=== PATIENT | male | born 1955 | race American Indian/Alaskan Native ===

== ENCOUNTER 2023-01-02 20:18 | Emergency (ER) | payer OTHER ==
[~2023-01-02] VITALS: Ht 167.6 cm; Wt 72.6 kg
[2023-01-02 20:18] VITALS: TEMP 98.7
[2023-01-02 23:05] LABS: PLATELET COUNT 195 K/uL (142-355)
[2023-01-02 23:15] LABS: POTASSIUM 5.1 mmol/L (3.6-5.2)
[2023-01-02 23:33] VITALS: BP 137/76
[2023-01-03] MEDS ORDERED: CALCIUM 600 WIT1 TAB PO (08:42)
[2023-01-03] MEDS ORDERED: KP FOLIC ACID1 MG PO (08:42)
[2023-01-03] MEDS ORDERED: QUET25TA2 PO (08:43)
[2023-01-03] MEDS ORDERED: VITAMIN B-121000 MC2 PO (08:43)
[2023-01-03] MEDS ORDERED: ASCO500T18 PO (08:43)
[2023-01-03] MEDS ORDERED: VITAMIN D50000 UNIT PO (08:45)
[2023-01-03] MEDS ORDERED: ZINC220 M1 PO (08:45)
== END 2023-01-02 23:33 ==
LOC: ED 20:18
PROVIDERS: Family Medicine
DX: F03.911 Unspecified dementia, unspecified severity, with agitation (principal); Y04.0XXA Assault by unarmed brawl or fight, initial encounter; F17.210 Nicotine dependence, cigarettes, uncomplicated; Z04.6 Encounter for general psychiatric examination, requested by authority; Y92.238 Other place in hospital as the place of occurrence of the external cause
CPT/HCPCS: 36415; 80053; 85027; 93005; 96372; 99283; J1200; J1630; J2060